=== PATIENT | female | born 1990 | race African-American/Black ===

== ENCOUNTER 2017-07-25 22:19 | Emergency (ER) | payer BC ==
[2017-07-25 23:53] LABS: Urine Blood NEGATIVE (NEG); Urine Glucose NEGATIVE (NEG); Urine Protein NEGATIVE (NEG); Urine Specific Gravity 1.025 (1.005-1.030); Urine pH 5.5 (5.0-7.0)
[2017-07-25 23:57] LABS: Absolute Lymphocytes (CBC) 3.2 K/uL (0.7-4.9); Absolute Monocytes 1.1 K/uL (0.1-1.3); Absolute Neutrophil 5.5 K/uL (1.8-8.0); Basophils % 0.5 % (0-1.3); Eosinophils % 0.9 % (0-4.4); Hematocrit 35.9 % (36.0-45.0); Lymphocytes % 32.3 % (15.3-44.8); MCH 31.1 pg (27.0-35.0); MCV 92.3 fL (80-100); RBC Red Blood Cell Count 3.89 M/uL (3.86-4.86)
[2017-07-26 00:02] LABS: Calcium Oxalate Crystals- Ur FEW (NONE SEEN); Urine Bacteria >50 /HPF (<20); Urine Culture Reflex Order REFLEXED; Urine Mucus HEAVY /HPF (NONE SEEN); Urine RBC <5 /HPF (NONE SEEN)
[2017-07-26] MEDS ORDERED: ACETAMINOPHEN 500 MG TAB ONE (00:17)
[2017-07-26] MEDS ORDERED: PROMETHAZINE 25 MG/ML VIAL ONE (00:17)
[2017-07-26] MEDS ORDERED: NA CHLORIDE 0.9% 1,000 ML ONE (00:17)
[2017-07-26 00:36] LABS: Bicarbonate 23 mEq/L (21-31); Glucose Level 97 mg/dL (65-120); Potassium 3.6 mEq/L (3.6-5.0); Sodium Level 136 mEq/L (135-145)
[2017-07-26 00:42] LABS: ALT/SGPT 20 IU/L (10-60); AST/SGOT 23 IU/L (10-42); Albumin 3.4 g/dL (3.2-5.5); Alkaline Phosphatase 43 IU/L (42-121); BUN Blood Urea Nitrogen 6 mg/dL (6-20); Bilirubin Direct 0.1 mg/dL (0-0.2); Bilirubin Total 0.4 mg/dL (0.3-1.2); Glomerular Filtration Rate > 90 mL/min (=/>90); Protein, Total 6.4 g/dL (6.0-8.3)
--- NOTE | 2017-07-26 00:49 | EDPHYS ---
Physician Documentation [facility] Name: Mora Rodriguez Age: 26 yrs Sex: Female : 1990 Arrival Date: 07/25/2017 Time: 22:23 Bed 20 Private MD: Feliciano Rosa ED Physician Feroz Moses HPI: 07/26 00:43 This 26 yrs old Black Female presents to ER via Ambulatory with complaints of Headache, wa Neck Pain, <24hrs Old, Abdominal Pain, 15 WEEKS PREG. 16:22 The patient complains of pain to the forehead. The patient describes the headache as wa aching. Onset: The symptoms/episode began/occurred yesterday. Associated signs and symptoms: Pertinent negatives: fever, nausea, Photophobia vomiting. Severity of symptoms: At its worst the pain was moderate, in the emergency department the pain has improved, markedly. Headache History: The patient has had previous headaches and this one is similar to previous episodes. The symptoms are alleviated by nothing. the symptoms are aggravated by nothing. The patient has experienced similar episodes in the past, a few times. The patient has not recently seen a physician. 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 - Social history:: Smoking status: Patient/guardian denies using tobacco, Patient/guardian denies using alcohol, street drugs. - Family history:: not pertinent. - Hospitalizations: : No recent hospitalization is reported. ROS: 07/26 16:24 Constitutional: Negative for fever, chills, and weight loss, Eyes: Negative for injury, wa pain, redness, and discharge, ENT: Negative for injury, pain, and discharge, Neck: Negative for injury, pain, and swelling, Cardiovascular: Negative for chest pain, palpitations, and edema, Respiratory: Negative for shortness of breath, cough, wheezing, and pleuritic chest pain, Abdomen/GI: Negative for abdominal pain, nausea, vomiting, diarrhea, and constipation, Back: Negative for injury and pain, : Negative for injury, bleeding, discharge, and swelling, MS/Extremity: Negative for injury and deformity, Skin: Negative for injury, rash, and discoloration. Neuro: Positive for headache, Negative for altered mental status, dizziness, gait disturbance. All other systems are negative. Exam: 16:24 Constitutional: This is a well developed, well nourished patient who is awake, alert, wa and in no acute distress. Head/Face: Normocephalic, atraumatic. Eyes: Pupils equal round and reactive to light, extra-ocular motions intact. Lids and lashes normal. Conjunctiva and sclera are non-icteric and not injected. Cornea within normal limits. Periorbital areas with no swelling, redness, or edema. ENT: Nares patent. No nasal discharge, no septal abnormalities noted. Tympanic membranes are normal and external auditory canals are clear. Oropharynx with no redness, swelling, or masses, exudates, or evidence of obstruction, uvula midline. Mucous membranes moist. Neck: Trachea midline, no thyromegaly or masses palpated, and no cervical lymphadenopathy. Supple, full range of motion without nuchal rigidity, or vertebral point tenderness. No Meningismus. Cardiovascular: Regular rate and rhythm with a normal S1 and S2. No gallops, murmurs, or rubs. Normal PMI, no JVD. No pulse deficits. Respiratory: Lungs have equal breath sounds bilaterally, clear to auscultation and percussion. No rales, rhonchi or wheezes noted. No increased work of breathing, no retractions or nasal flaring. Abdomen/GI: Soft, non-tender, with normal bowel sounds. No distension or tympany. No guarding or rebound. No evidence of tenderness throughout. Back: No spinal tenderness. No costovertebral tenderness. Full range of motion. Skin: Warm, dry with normal turgor. Normal color with no rashes, no lesions, and no evidence of cellulitis. MS/ Extremity: Pulses equal, no cyanosis. Neurovascular intact. Full, normal range of motion. Psych: Awake, alert, with orientation to person, place and time. Behavior, mood, and affect are within normal limits. 16:24 Neuro: Orientation: is normal, Mentation: is normal, Memory: is normal, Cranial nerves: grossly normal, Motor: is normal. Vital Signs: 07/25 22:54 BP 126 / 62; Pulse 86; Resp 18 S; Temp 97.7(O); Pulse Ox 98% on R/A; Weight 95.71 kg bb (R); Height 5 ft. 4 in. (162.56 cm) (R); Pain 8/10; 07/26 01:00 BP 95 / 55; Pulse 85; Resp 18 S; Temp 98.4(O); Pulse Ox 99% on R/A; bb 07/25 22:54 Body Mass Index 36.22 (95.71 kg, 162.56 cm) MDM: 07/25 22:58 Patient medically screened. or 07/26 16:25 Differential diagnosis: tension headache, hypovolemia?. Data reviewed: vital signs, or nurses notes. Test interpretation: by ED physician or midlevel provider: pt preg. noted significant bacteria in UA. will cover with abx to prevent development to acute UTI. Response to treatment: the patient's symptoms have markedly improved after treatment. 07/25 23:24 Order name: Basic Metabolic Panel or 07/25 23:24 Order name: CBC with Diff or 07/25 23:24 Order name: Hepatic Function or 07/25 23:24 Order name: Urine Microscopic Only or 07/25 23:42 Order name: Urine Dipstick--Ancillary (enter results) [facility] 07/25 23:42 Order name: Urine --Ancillary (enter results) [facility] 07/25 23:53 Order name: Urine --Ancillary; Complete Time: 00:21 [facility] 07/25 23:53 Order name: Urine Dipstick-Ancillary; Complete Time: 00:22 [facility] 07/25 23:59 Order name: CBC with Automated Diff; Complete Time: 00:21 [facility] 07/26 00:03 Order name: Urine Microscopic Only; Complete Time: 00:21 [facility] 07/26 00:36 Order name: Basic Metabolic Panel [facility] 07/26 00:43 Order name: Liver (Hepatic) Function [facility] 07/25 23:24 Order name: IV Saline Lock; Complete Time: 23:55 or 07/25 23:24 Order name: Labs collected and sent; Complete Time: 23:55 or 07/25 23:24 Order name: Urine Dipstick-Ancillary (obtain specimen); Complete Time: 23:40 wa Administered Medications: 00:00 Drug: Phenergan 6.25 mg Route: IVP; Site: left hand; bb 01:04 Follow up: Response: No adverse reaction 00:00 Drug: Tylenol 1000 mg Route: PO; bb 01:04 Follow up: Response: No adverse reaction 00:00 Drug: NS 0.9% 1000 ml Route: IV; Rate: 1000 ml; Site: left hand; bb 01:04 Follow up: IV Status: Completed infusion; IV Intake: 1000ml bb 00:50 Drug: Rocephin - (cefTRIAXone) 1 grams Route: IVPB; Infused Over: 30 mins; Site: left hand; 01:03 Follow up: IV Status: Completed infusion; IV Intake: 10ml ; per protocol bb Disposition: 07/26/17 00:49 Discharged to Home. Impression: ACUTE HEADACHE, BACTERIUREA IN . - Condition is Stable. - Discharge Instructions: General Headache Without Cause, [id number]. - Prescriptions for Keflex 500 mg Oral Capsule - take 1 capsule by ORAL route every 8 hours for 5 days; 15 capsule. - Work release form, Medication Reconciliation Form, Thank You Letter, Antibiotic Education, Prescription Opioid Use form. - Follow up: Private Physician; When: 2 - 3 days; Reason: Recheck today's complaints. - Problem is new. - Symptoms have improved. - Notes: TAKE TYLENOL IF YOU HAVE A HEADACHE. TAKE ANTIBIOTIC FOR BACTERIA IN THE URINARY TRACT DISCUSSED Signatures: Dispatcher [employer] Maranda Finnegan RN RN bb Appiah, William, MD MD or
--- NOTE | 2017-07-26 00:49 | ER ---
Nurse's Notes [facility] Name: Mora Rodriguez Age: 26 yrs Sex: Female : 1990 Arrival Date: 07/25/2017 Time: :23 Bed 20 Private MD: Feliciano Rosa Diagnosis: ACUTE HEADACHE;BACTERIUREA IN Presentation: 07/25 22:51 Presenting complaint: Patient states: she has a headache and neck pain since yesterday bb took 2 tylenol at approx 1700 tonight which helped a little also had one episode of a sharp pain on right side of diaphragm lasting a second and has not occurred again, pt has had similar symptoms in the past. Transition of care: patient was not received from another setting of care. Onset of symptoms was July 24, 2017. Care prior to arrival: None. 22:51 Method Of Arrival: Ambulatory 22:51 Acuity: OSIEL 4 bb Triage Assessment: 22:54 Headache History: The patient has had previous headaches and this one is similar to bb previous episodes. General: Appears in no apparent distress. Behavior is calm, cooperative. Pain: Complains of pain in head Pain currently is 8 out of 10 on a pain scale. Pain began 1 day ago. Also complains of worse when bending over. Neuro: Level of Consciousness is awake, alert, obeys commands, Oriented to person, place, time, situation. Cardiovascular: No deficits noted. Respiratory: Respiratory effort is even, unlabored. : Reports she is 15 weeks . Musculoskeletal: Circulation, motion, and sensation intact. 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 - Social history:: Smoking status: Patient/guardian denies using tobacco, Patient/guardian denies using alcohol, street drugs. - Family history:: not pertinent. - Hospitalizations: : No recent hospitalization is reported. Screenin:58 Abuse screen: Denies threats or abuse. Nutritional screening: No deficits noted. bb Tuberculosis screening: No symptoms or risk factors identified. Fall Risk None identified. Assessment: 22:58 Reassessment: No changes from previously documented assessment. see triage assessment. bb 07/26 00:12 Reassessment: Patient is alert, oriented x 3, equal unlabored respirations, skin bb warm/dry/pink. pt c/o pain to IV site in R AC, IV removed with catheter intact, bleeding controlled, pressure dressing applied. 01:00 Reassessment: Patient and/or family updated on plan of care and expected duration. Pain bb level reassessed. Patient is alert, oriented x 3, equal unlabored respirations, skin warm/dry/pink. pt verbalized understanding of and agrees to plan of care discharge instructions given pt ambulated with steady gait to exit. Vital Signs: 07/25 22:54 BP 126 / 62; Pulse 86; Resp 18 S; Temp 97.7(O); Pulse Ox 98% on R/A; Weight 95.71 kg bb (R); Height 5 ft. 4 in. (162.56 cm) (R); Pain 8/10; 07/26 01:00 BP 95 / 55; Pulse 85; Resp 18 S; Temp 98.4(O); Pulse Ox 99% on R/A; bb 07/25 22:54 Body Mass Index 36.22 (95.71 kg, 162.56 cm) ED Course: 07/25 22:23 Patient arrived in ED. es 22:24 Feliciano Rosa MD is Private Physician. es 22:50 Maranda Fuller, RN is Primary Nurse. bb 22:53 Triage completed. bb 22:54 Arm band placed on Patient placed in an exam room, on a stretcher, on pulse oximetry. bb 22:58 Feroz Moses MD is Attending Physician. wa 22:58 Patient has correct armband on for positive identification. Bed in low position. Call bb light in reach. Pulse ox on. NIBP on. 23:50 Initial lab(s) drawn, by ED staff, sent to lab. Inserted saline lock: 20 gauge in right bb antecubital area, using aseptic technique. ,using aseptic technique. by Lorena psychology technician Blood collected. 07/26 00:15 Lab(s) recollected, by me, sent to lab. Inserted saline lock: 22 gauge in left hand, bb using aseptic technique. Blood collected. 01:01 No provider procedures requiring assistance completed. IV discontinued, intact, bb bleeding controlled, No redness/swelling at site. Pressure dressing applied. Administered Medications: 00:00 Drug: Phenergan 6.25 mg Route: IVP; Site: left hand; bb 01:04 Follow up: Response: No adverse reaction bb 00:00 Drug: Tylenol 1000 mg Route: PO; bb 01:04 Follow up: Response: No adverse reaction bb 00:00 Drug: NS 0.9% 1000 ml Route: IV; Rate: 1000 ml; Site: left hand; bb 01:04 Follow up: IV Status: Completed infusion; IV Intake: 1000ml bb 00:50 Drug: Rocephin - (cefTRIAXone) 1 grams Route: IVPB; Infused Over: 30 mins; Site: left bb hand; 01:03 Follow up: IV Status: Completed infusion; IV Intake: 10ml ; per protocol bb Intake: 01:03 IV: 10ml; Total: 10ml. bb 01:04 IV: 1000ml; Total: 1010ml. bb Outcome: 00:49 Discharge ordered by . wa 01:01 Discharged to home ambulatory. bb 01:01 Condition: stable 01:01 Discharge instructions given to patient, Instructed on discharge instructions, follow up and referral plans. medication usage, Demonstrated understanding of instructions, follow-up care, medications, Prescriptions given X 1. 01:13 Patient left the ED. bb Signatures: Jordyn Alfonso Brenda, RN RN bb Appiah, William, MD MD wa
[2017-07-26] MEDS ORDERED: CEFTRIAXONE/SWI 1gm 1 GM/10 ML SYR ONE (01:07)
== END 2017-07-26 01:13 | disposition home or self-care (01) ==
LOC: ER 22:19
DX: O23.92 Unspecified genitourinary tract infection in pregnancy, second trimester (principal); B96.89 Other specified bacterial agents as the cause of diseases classified elsewhere; R51 Headache; Z3A.15 15 weeks gestation of pregnancy; Z88.8 Allergy status to other drugs, medicaments and biological substances
CPT/HCPCS: 36415; 80048; 80076; 81003; 81015; 81025; 85025; 87086; 87088; 96361; 96374; 96375; 99284; J0696; J2550; J7030